=== PATIENT | male | born 1980 | race Caucasian/White ===

== ENCOUNTER 2020-12-12 15:17 | Emergency (ER) | payer OTHER ==
[2020-12-12] MEDS ORDERED: KEFLEX250 MG PO (17:48)
== END 2020-12-12 18:05 | disposition home or self-care (01) ==
LOC: FER 15:17
DX: S61.213A Laceration without foreign body of left middle finger without damage to nail, initial encounter (principal); F17.200 Nicotine dependence, unspecified, uncomplicated; W31.89XA Contact with other specified machinery, initial encounter; Y92.89 Other specified places as the place of occurrence of the external cause; Y99.0 Civilian activity done for income or pay
CPT/HCPCS: 99282